=== PATIENT | female | born 1980 | race Caucasian/White ===

== ENCOUNTER 2017-10-20 08:00 | Emergency (ER) | payer OTHER, MEDICAID ==
[~2017-10-20] VITALS: Ht 167.6 cm; Wt 65.8 kg
[2017-10-20] MEDS ORDERED: PREN1TAB81 PO (08:14)
[2017-10-20] MEDS ORDERED: PROGESTERONE (08:14)
[2017-10-20] MEDS ORDERED: TYLENOL (08:14)
[2017-10-20 08:44] LABS: CREATININE 0.7 mg/dL (0.6-1.3); POTASSIUM 3.7 mmol/L (3.5-5.1)
[2017-10-20 08:50] LABS: BILIRUBIN,DIRECT 0.1 mg/dL (0.0-0.2); BILIRUBIN,TOTAL 0.5 mg/dL (0.2-1.0)
[2017-10-20] MEDS ORDERED: ONDANSETRON 4 MG/2 ML VIAL ONE (08:52)
[2017-10-20] MEDS ORDERED: MORPHINE SULFATE 4 MG/1 ML DISP.SYRIN ONE ×2 (08:52→09:15)
[2017-10-20] MEDS ORDERED: ONDANSETRON IV *ER 4 MG/2 ML VIAL IV ONE (09:00)
[2017-10-20] MEDS ORDERED: IV NORMAL SALINE 1000 ML BAG IV ONE (09:00)
[2017-10-20] MEDS ORDERED: MORPHINE SULFATE 4 MG/1 ML DISP.SYRIN IV ONE ×2 (09:00→09:30)
[2017-10-20 09:01] LABS: BASOPHILS % (AUTO) 0.4 % (0.0-2.0); EOSINOPHILS # (AUTO) 0.1 K/uL (0.0-0.7); EOSINOPHILS % (AUTO) 1.7 % (0.0-7.0); HEMATOCRIT 36.3 % (31.2-41.9); HEMOGLOBIN 12.3 g/dL (10.9-14.3); LYMPHOCYTES # (AUTO) 1.8 K/uL (20.0-40.0); MEAN CORPUSCULAR HEMOGLOBIN 29.7 uug (24.7-32.8); MEAN CORPUSCULAR HGB CONC 34 g/dL (32.3-35.6); MEAN CORPUSCULAR VOLUME 87.4 fL (75.5-95.3); MONOCYTES # (AUTO) 0.4 K/uL (2.0-10.0); MONOCYTES % (AUTO) 5.3 % (0.0-11.0); NEUTROPHILS # (AUTO) 4.7 K/uL (1.8-8.9); NEUTROPHILS % (AUTO) 66.6 % (38.5-71.5); PLATELET COUNT (AUTO) 204 K/uL (179-408); RED BLOOD CELL COUNT(AUTO) 4.15 MIL/uL (3.63-4.92); WHITE BLOOD COUNT (AUTO) 7.1 K/uL (3.8-11.8)
--- NOTE | 2017-10-20 09:04 | NUR ---
LAB UMANG BLOOD EARLIER, SALINE LOCK PLACED, MEDS ADMIN, 1L 0.9 NS INFUSING. PT POSITIONED FOR COMFORT.
--- NOTE | 2017-10-20 10:32 | NUR ---
MSE COMPLETED. SALINE LOCK D/C'D INTACT, ACI/CD COPY OF [place] AND LAB RESULTS GIVEN. PT WAS THEN TRANSPORTED TO VEHICLE VIA W/C, PT'S TO DRIVE. PT TOOK ALL BELONGINGS.
[2017-10-20 10:36] VITALS: BP 122/62
== END 2017-10-20 10:30 | disposition home or self-care (01) ==
LOC: ER 08:00
DX: O00.90 Unspecified ectopic pregnancy without intrauterine pregnancy (principal); Z79.899 Other long term (current) drug therapy; Z79.891 Long term (current) use of opiate analgesic
CPT/HCPCS: 36415; 76856; 85025; 85730; 86850; 86900; 86901; A4663; J2270; J2405; J7030